=== PATIENT | male | born 1955 | race African-American/Black ===

== ENCOUNTER 2020-08-26 12:30 | Emergency (ER) | payer OTHER ==
[~2020-08-26] VITALS: Ht 175.3 cm; Wt 85.0 kg
[2020-08-26 12:33] VITALS: BP 144/80
== END 2020-08-26 14:36 | disposition home or self-care (01) ==
LOC: ER 12:30
DX: R21 Rash and other nonspecific skin eruption (principal)
CPT/HCPCS: 99282